=== PATIENT | female | born 1965 | race Caucasian/White ===

== ENCOUNTER 2019-04-26 13:46 | Inpatient (IN) ==
[2019-04-26] MEDS ORDERED: NS 1,000 ML IV ONE (14:15)
[2019-04-26] MEDS ORDERED: MORPHINE IV ONE (14:15)
--- NOTE | 2019-04-26 14:30 | PROVIDER DOCUMENTATION ---
HPI-Abdominal Pain/GI Problem - General Chief Complaint: Abdominal Pain Stated Complaint: N/V/D Time Seen by Provider: 04/26/19 14:11 Source: patient Allergies/Adverse Reactions: Patient Allergies Allergy/AdvReac Type Severity Reaction Status Date / Time No Known Allergies Allergy Verified 04/26/19 14:37 Home Medications: Home Medication List Medication Instructions Recorded Confirmed Last Taken Type NK [No Home Medications] 04/26/19 04/26/19 Unknown History - History of Present Illness-ABD Nature of Presenting Problems: STATES SHE ONLY HAS HISTORY OF PANCREATITIS CAME IN TODAY WITH RIGHT/LEFT UPPER AND EPIGASTRIC PAIN THAT'S SHARP AND RADIATES TO THE BACK. STATES IT STARTED TODAY. DENIES DRINKING ALCOHOL RECENTLY. ENDORSE NAUSEA AND VOMITING. DENIES FEVER, CHILL, NIGHT SWEATS, DIZZINESS, LIGTHHEADEDNESS, BLURRY VISION, SORE THROAT, CHEST PAIN, DYSPNEA, CONSTIPATION, MYALGIA, ARTHRALGIA, NEW RASH/LESION, AND HEAT OR COLD INTOLERANCE. Abdominal Pain Onset Location: reports: RUQ, LUQ, epigastric Pain Radiation: reports: back Quality of Pain: reports: sharp, stabbing Onset/Duration: reports: 4-6 hours ago Timing: reports: still present Review of Systems - Adult - REVIEW OF SYSTEMS - ADULT ROS:: unobtainable per condition Constitutional: reports: no symptoms reported Eyes: reports: no symptoms reported Ears, Nose, Mouth & Throat: reports: no symptoms reported Cardiovascular: reports: no symptoms reported Respiratory: reports: no symptoms reported Gastrointestinal: reports: abdominal pain, diarrhea, nausea, poor appetite, vomiting Genitourinary: reports: no symptoms reported Musculoskeletal: reports: no symptoms reported Integumentary: reports: no symptoms reported Neurological: reports: no symptoms reported Psychiatric: reports: no symptoms reported Endocrine: reports: no symptoms reported Hematologic/Lymphatic: reports: no symptoms reported Allergic/Immunologic: reports: no symptoms reported Past History - Adult - PAST MEDICAL HISTORY-ADULT Review of Records: reports: Old Records Reviewed Physical Exam-General - PHYSICAL EXAM-ADULT Initial Vital Signs Reviewed: Yes - CONSTITUTIONAL General Appearance: mild distress - EYES Eyes: PERRL/EOMI - HEAD, EARS, NOSE, MOUTH & THROAT HENMT: normocephalic/atraumatic, moist mucous membranes - NECK Neck: non-tender, full range of motion, supple - RESPIRATORY Respiratory: chest non-tender, lungs clear, normal breath sounds, no pleuratic chest pain, no respiratory distress, no accessory muscle use - CARDIOVASCULAR Cardiovascular: normal peripheral pulses, regular rate, rhythm, no edema, no gallop, no JVD, no murmur - GASTROINTESTINAL (ABDOMEN) Abdominal Exam: normal bowel sounds, soft, guarding, tenderness (PREDOMINANTLY EPIGASTRIC REGION). negative: abdominal bruit, distended, hernia, mass - MUSCULOSKELETAL Back Exam: normal inspection, no CVA tenderness, no vertebral tenderness Extremity: normal range of motion, non-tender, normal gait, normal inspection - SKIN Integumentary: normal color, normal turgor, warm/dry - NEUROLOGIC Neurologic: grossly normal - PSYCHIATRIC Psych/Mental Status: normal mood/affect, normal thought content, normal thought process, oriented x 3 Progress - PLAN OF CARE/RESULTS Progress/Plan/Lab Results: Orders Category Date Time Status NPO Diet 04/26/19 14:[address] ABD/PELVIS W/IV CONT ONLY [CT] Stat Exams 04/26/19 14:15 Ordered AMYLASE [CHEM] Stat Lab 04/26/19 14:15 Uncollected CBC WITH DIFF [HEME] Stat Lab 04/26/19 14:15 Uncollected COMPREHENSIVE METABOLIC PANEL [CHEM] Stat Lab 04/26/19 14:15 Uncollected LIPASE [CHEM] Stat Lab 04/26/19 14:15 Uncollected MAGNESIUM [CHEM] Stat Lab 04/26/19 14:15 Uncollected URINALYSIS [URINALYSIS] Stat Lab 04/26/19 14:15 Uncollected URINE DRUG SCREEN Stat Lab 04/26/19 14:15 Uncollected 0.9% Sodium Chloride Inj [Ns] 1,000 ml Med 04/26/19 14:15 Active IV 999 mls/hr Morphine Med 04/26/19 14:15 Discontinued 4 mg IV NOW ONE Result Diagrams: 04/26/19 14:45 04/26/19 14:45 - REASSESSMENT Reassessment #1 Time Reassessed: 17:50 Status: other (SPOKE TO ALLYN; WILL ADMIT FOR SUDDENT ONET OF ABD PAIN AND N AND V AND CT WITH POSSIBLE ENTERITIS AND ILELUS. [facility] - CT/MRI 1 CT Study: Abdomen ([facility] - [address], [address], [place] [address] [facility] - [address] , [place] [address] Department of Imaging Patient: YNES GILLESPIE Date: 04/26/19#: [id number] : 1965ADM Status: REG [facility]#: [id number] Age/Sex: 53/FRoom/Bed: Loc: ED Ordering Physician: Bianka Reed MD Family Physician: None,PCP Reason for Procedure: EPI PAIN OUT OF PORPROTION ___ Signed EXAM: CT ABDOMEN/PELVIS W/O CONTRAST INDICATION: EPI PAIN OUT OF PROPORTION TECHNIQUE: This exam was performed using automated exposure control, adjustment of mA or kV according to patient size, and/or use of iterative reconstruction technique. COMPARISON: None. FINDINGS: There is mild subsegmental atelectasis at the lung bases. There is a 7 mm noncalcified nodule at the periphery of the right lower lobe on image six of series 4. It is indeterminate and may represent a noncalcified granuloma. Consider follow-up based on Fleischner Society criteria. There has been a prior cholecystectomy. There is mild compensatory dilatation of the common bile duct related to postcholecystectomy status. The liver, spleen, pancreas, adrenal glands, kidneys, and urinary bladder are grossly unremarkable as imaged with unenhanced CT. There has been a prior hysterectomy. The appendix is normal. There is abundant stool in the colon suggesting possible constipation. The stool burden is moderate. There is a tiny hiatal hernia. There are a few mildly prominent fluid-filled loops of proximal small bowel that are nonspecific. This probably represents a mild ileus, perhaps due to enteritis. No inflammatory stranding or definite bowel wall thickening is identified, however. There is a very small left inguinal hernia containing only fat. There is a small fat-containing umbilical hernia. No focal inflammatory changes, free abdominal gas, or free fluid is identified. There is mild facet arthropathy at the lower lumbar spine. There is no evidence of acute osseous abnormality. IMPRESSION: 1.Fluid-filled loops of jejunum and duodenum with mild distention. It is nonspecific. Consider ileus related to mild enteritis. 2.Possible constipation. 3.7 mm noncalcified nodule in the right right lung lower lobe. 4.Other incidental/nonacute findings detailed above. Electronically signed by Catracho Anderson 04/26/2019 4:45 PM 04/26/19 [id number] Interpreting Physician: Catracho Anderson MD Dictated Date/Time: 04/26/19 8748 cc: Bianka Reed MD; None,PCP) Departure - Departure Date of Disposition Decision: 04/26/19 Time of Disposition Decision: 17:51 DIAGNOSIS: Ileus, Enteritis Disposition: ADMITTED INPATIENT 09 Certified Medical Emergency: Emergent Condition: Poor Referrals and Follow-Ups: None,PCP [Primary Care Provider] - - Critical Care Note This patient required my direct & personal management of CC.: No Attestation - Physician/ SIMON Attestation Patient care was provided by Advanced Practice Provider:: No The physician spent face to face time with patient:: Yes Advanced Practice Provider documentation review:: Supervising physician onsite and consulted in the evaluation and care of this patient. The physician did have a face to face encounter with the patient.
[2019-04-26] MEDS ORDERED: SODIUM CHLORIDE 0.9% INJ ONE (14:56)
[2019-04-26] MEDS ORDERED: PHENERGAN IV ONE (14:56)
[2019-04-26 15:14] LABS: BASO# 0.02 X1000 (0.0-0.2); BASO% 0.1 % (0.0-0.8); EOS# 0.15 X1000 (0.0-0.7); EOS% 0.9 % (0.0-10.0); HEMATOCRIT 44.2 % (37.0-47.0); HEMOGLOBIN 14.7 g/dL (12.0-16.0); IMM GRAN# 0.05 X1000 (0.0-0.04); IMM GRAN% 0.3 % (0.0-0.5); LYMPH# 1.02 X1000 (1.2-3.4); LYMPH% 6.2 % (20.5-51.1); MCH 28.4 PG (27-31); MCHC 33.3 g/dL (33-37); MCV 85.3 FL (81-99); MONO# 0.76 X1000 (0.11-0.59); MONO% 4.6 % (1.7-9.3); MPV 10.2 FL (7.4-10.4); NEUT# 14.43 X1000 (1.4-6.5); NEUT% 87.9 % (42.2-75.2); PLT 270 X1000 (130-400); RBC 5.18 XMIL (4.2-5.4); RDW 13.4 % (11.5-14.5); WBC 16.43 X1000 (4.8-10.8)
[2019-04-26 16:06] LABS: AGAP 19; ALB/GLOB RATIO 1.5; ALBUMIN 4.5 g/dL (3.5-5.0); ALKALINE PHOSPHATASE 118 U/L (32-104); AMYLASE 78 U/L (20-200); BUN 18 mg/dL (8-22); CALCIUM 8.4 mg/dL (8.8-10.2); CHLORIDE 99 mmol/L (98-107); COSMO 278; CREATININE 0.6 mg/dL (0.5-0.9); ESTIMATED GFR > 60; GLUCOSE 112 mg/dL (70-104); GOT 27 U/L (10-30); GPT 34 U/L (10-36); LIPASE 31 U/L (13-60); MAGNESIUM 1.7 mg/dL (1.5-2.7); POTASSIUM 3.6 mmol/L (3.5-5.1); SODIUM 138 mmol/L (136-145); TCO2 20 mmol/L (25-35); TOTAL BILIRUBIN 0.71 mg/dL (0.20-1.00); TOTAL PROTEIN 7.6 g/dL (6.3-8.3)
--- NOTE | 2019-04-26 16:48 | Diag Imaging Result Doc PS360 ---
EXAM: CT ABDOMEN/PELVIS W/O CONTRAST INDICATION: EPI PAIN OUT OF PROPORTION TECHNIQUE: This exam was performed using automated exposure control, adjustment of mA or kV according to patient size, and/or use of iterative reconstruction technique. COMPARISON: None. FINDINGS: There is mild subsegmental atelectasis at the lung bases. There is a 7 mm noncalcified nodule at the periphery of the right lower lobe on image six of series 4. It is indeterminate and may represent a noncalcified granuloma. Consider follow-up based on Fleischner Society criteria. There has been a prior cholecystectomy. There is mild compensatory dilatation of the common bile duct related to postcholecystectomy status. The liver, spleen, pancreas, adrenal glands, kidneys, and urinary bladder are grossly unremarkable as imaged with unenhanced CT. There has been a prior hysterectomy. The appendix is normal. There is abundant stool in the colon suggesting possible constipation. The stool burden is moderate. There is a tiny hiatal hernia. There are a few mildly prominent fluid-filled loops of proximal small bowel that are nonspecific. This probably represents a mild ileus, perhaps due to enteritis. No inflammatory stranding or definite bowel wall thickening is identified, however. There is a very small left inguinal hernia containing only fat. There is a small fat-containing umbilical hernia. No focal inflammatory changes, free abdominal gas, or free fluid is identified. There is mild facet arthropathy at the lower lumbar spine. There is no evidence of acute osseous abnormality. IMPRESSION: 1.Fluid-filled loops of jejunum and duodenum with mild distention. It is nonspecific. Consider ileus related to mild enteritis. 2.Possible constipation. 3.7 mm noncalcified nodule in the right right lung lower lobe. 4.Other incidental/nonacute findings detailed above. Electronically signed by Catracho Anderson 04/26/2019 4:45 PM
[2019-04-26 16:58] LABS: URINE SOURCE CATH
[2019-04-26 17:04] LABS: BILIRUBIN URINE NEGATIVE (NEGATIVE); BLOOD URINE SMALL (NEGATIVE); COLOR YELLOW; GLUCOSE URINE NEGATIVE (NEGATIVE); KETONE URINE NEGATIVE (NEGATIVE); LEUKOCYTES URINE NEGATIVE (NEGATIVE); NITRITE URINE NEGATIVE (NEGATIVE); PH URINE 5.5; PROTEIN URINE TRACE mg/dL (NEGATIVE); SP GRAVITY URINE 1.023; TURBIDITY URINE CLEAR (CLEAR); UROBILINOGEN URINE NORMAL (NORMAL)
[2019-04-26 17:07] LABS: UR EPITHELIAL CELLS <10 /HPF (<10); URINE BACTERIA NEGATIVE /HPF; URINE RBC <10 /HPF (<10); URINE WBC <10 /HPF (<10)
[2019-04-26 17:14] LABS: UR AMPHETAMINES QUAL NONE DETECTED (NONE DETECT); UR BARBITUATES QUAL NONE DETECTED (NONE DETECT); UR BENZODIAZEPIN QUAL NONE DETECTED (NONE DETECT); UR CANNABINOIDS QUAL NONE DETECTED (NONE DETECT); UR COCAINE QUAL NONE DETECTED (NONE DETECT); UR METHADONE QUAL NONE DETECTED (NONE DETECT); UR OPIATES QUAL PRESUMPTIVE POSITIVE (NONE DETECT); UR OXYCODONE QUAL NONE DETECTED (NONE DETECT); UR PCP QUAL NONE DETECTED (NONE DETECT)
[2019-04-26] MEDS ORDERED: ZOFRAN IV PRN (17:31)
[2019-04-26] MEDS ORDERED: NS 1,000 ML IV SCH (17:45)
[2019-04-26] MEDS ORDERED: MORPHINE IV PRN (18:04)
[2019-04-26] MEDS ORDERED: REGLAN IV SCH (18:15)
[2019-04-26] MEDS ORDERED: RELISTOR SUBQ ONE (18:48)
[2019-04-26] MEDS: BENTYL IM SCH (19:36)
[2019-04-26] MEDS: DULCOLAX PR SCH (19:37)
--- NOTE | 2019-04-26 19:37 | HISTORY AND PHYSICAL ---
CHIEF COMPLAINT: Abdominal pain, nausea. HPI: This is a 53-year-old female with a prior history of pancreatitis who presents to the emergency room complaining of nausea, vomiting, and upper abdominal pain. She states this started this morning. She states it feels like her prior pancreatitis symptoms. She did eat tacos last night prior to going to bed. She denied any black or bloody vomitus or stools, any chest pain, palpitations, any fevers or chills. PAST MEDICAL HISTORY: 1. Pancreatitis. 2. Gastroesophageal reflux disease. PAST SURGICAL HISTORY: Hysterectomy, bilateral tubal ligation. SOCIAL HISTORY: She has a remote history of ethanol abuse, although she as well as her family member state it has been greater than 5 years since her last drink. She denies any tobacco or illicit drug use. FAMILY HISTORY: She denies any heart disease [*] hypertension and with her both parents. She denies any diabetes in her family. ALLERGIES: No known drug allergies. HOME MEDICATIONS: A list will be obtained by the nursing staff and once verified will review and restart as appropriate. REVIEW OF SYSTEMS: Discussed with patient with pertinent positives stated in the HPI. She denies any syncope or dizziness, any chest pain or palpitations, any diarrhea, constipation, black or bloody vomitus or stools, any hematuria, dysuria, frequency, urgency. No shortness of breath, cough, fever, chills. PHYSICAL EXAM: This is a 53-year-old female who is lying in the bed. She is drowsy after having morphine. VITAL SIGNS: Blood pressure is 134/76 with a heart rate of 94, respirations are 18, temperature is 97.9 degrees with room air saturations 95%. HEENT: Pupils are equal, round, react to light. EOMs are intact. Sclerae anicteric. Head is normocephalic, atraumatic. Mucous membranes are moist. NECK: Supple. Trachea midline. CARDIOVASCULAR: Regular rate and rhythm. S1, S2 appreciated. She has no lower extremity edema. Calves are nontender bilateral with peripheral pulses palpable x4 extremities. PULMONARY: Breath sounds are clear. No increased work of breathing noted. Chest rise fall symmetric respiration. Chest wall is nontender to palpation. GASTROINTESTINAL: Abdomen soft. She is tender to palpation at the bilateral upper quadrants and epigastric area. She is distended with bowel sounds in all 4 quadrants. : No CVA or suprapubic tenderness. NEUROLOGIC: She is sleepy but she is oriented x3. SKIN: Warm and dry. LABS: WBC is 16.4 with hemoglobin 14.7, hematocrit 44.2, platelets of 270,000. Sodium 138, potassium 3.6, BUN 18, creatinine 0.6 with a glucose of 112, alkaline phosphatase is 118. Urinalysis is catheterization urine is positive for blood, otherwise essentially negative. Urine drug screen is presumptive positive for opiates. CT of the abdomen and pelvis reveals fluid-filled loops of jejunum and duodenum with mild distention that is nonspecific. Consider ileus related to mild enteritis, possible constipation. A 7 mm noncalcified nodule in the right lower lung. ASSESSMENT AND PLAN: 1. Epigastric upper quadrant pain. 2. Nausea and vomiting. 3. Leukocytosis. 4. History of chronic pancreatitis. 5. Gastroesophageal reflux disease. PLAN: The patient will be admitted to the medical floor. She will be n.p.o. at present. Will continue with IV hydration with IV antiemetics and pain medicine. Repeat a CBC, CMP, amylase and lipase in the morning. Start Dulcolax suppositories q.6 hours along with Reglan q.6 hours giving Prilosec as a PPI. For DVT prophylaxis will use SCDs at present. Further treatments pending hospital course. Dictated by ALYX Rodas for Wilbur Vo MD cc: ALYX Rodas MD
[2019-04-26] MEDS ORDERED: TYLENOL PO PRN (19:51)
--- NOTE | 2019-04-26 20:24 | HISTORY AND PHYSICAL ---
SUBJECTIVE: I have seen and examined Ms. Bertrand today. Ms. Bertrand presented because of acute onset of upper epigastric mid abdomen pain associated with some nauseation and vomiting. She thought she had an episode of pancreatitis since she had this before. She got a gallbladder removal in 2012 because of gallbladder induced acute pancreatitis. Since then, she has not had any more bouts. Upon presenting to the emergency department, she was evaluated. Her vitals were within normal range, and she was saturating well. Her current physical exam is remarkable for mild epigastric discomfort with mild tenderness. No rebound. No guarding. Bowel sounds are present, but slightly hypoactive. Otherwise, the mucosa is slightly dry. Laboratory Data has also been reviewed. White cell count is 16.43. Rest of the cell count is within normal range. Chemistry is also reviewed. Mild gap acidosis. The urine toxicology is positive for opioids despite Ms. Bertrand denies taking any opioid containing substance. CURRENT IMAGING DATA: A CAT scan of the abdomen shows fluid-filled loops of jejunum and duodenum with mild distention. It is nonspecific. Consider ileus related to mild enteritis, and possible constipation. ASSESSMENT: 1. Abdominal pain associated with nausea and vomiting. A CAT scan suggestive of constipation and enteritis. For now, we are going to keep Ms. Bertrand NPO, adequately hydrate her. Control her pain. Avoid any narcotics for now. 2. Constipation. Ms. Bertrand denies using any narcotic, however, her urine sample is positive for opioids. It is very possible that this is opioid induced constipation. We are going to give her a dose of methyl naltrexone subcutaneous, and try avoid any narcotic overnight. Use Bentyl and acetaminophen for pain control. 3. Clinical volume depletion. Will continue with IV fluids overnight. 4. Leukocytosis, presumably reactive. 5. Please refer to the details of the H P which has been dictated by the DRIER TENDER in the chart. cc: Wilbur Vo MD
[2019-04-26] MEDS: NS 1,000 ML IV SCH (20:54)
[2019-04-26] MEDS: OFIRMEV 1000 MG/ISOTONIC SOLN 1,000 MG/100 ML BOTTLE IV SCH (20:54)
[2019-04-26] MEDS: LACTULOSE PO SCH (20:54)
[2019-04-27] MEDS: BENTYL IM SCH ×2 (01:04→06:43)
[2019-04-27] MEDS: DULCOLAX PR SCH ×3 (01:04→11:05)
[2019-04-27] MEDS: OFIRMEV 1000 MG/ISOTONIC SOLN 1,000 MG/100 ML BOTTLE IV SCH (01:24)
[2019-04-27] MEDS ORDERED: FLU VACCINE IM ONE (01:49)
[2019-04-27] MEDS: NS 1,000 ML IV SCH ×2 (05:28→10:55)
[2019-04-27 06:30] LABS: AGAP 14; ALB/GLOB RATIO 1.1; ALBUMIN 3.1 g/dL (3.5-5.0); ALKALINE PHOSPHATASE 105 U/L (32-104); BUN 20 mg/dL (8-22); CALCIUM 7.4 mg/dL (8.8-10.2); CHLORIDE 101 mmol/L (98-107); COSMO 272; CREATININE 0.6 mg/dL (0.5-0.9); ESTIMATED GFR > 60; GLUCOSE 122 mg/dL (70-104); GOT 218 U/L (10-30); GPT 146 U/L (10-36); POTASSIUM 3.4 mmol/L (3.5-5.1); SODIUM 134 mmol/L (136-145); TCO2 19 mmol/L (25-35); TOTAL BILIRUBIN 1.32 mg/dL (0.20-1.00); TOTAL PROTEIN 5.8 g/dL (6.3-8.3)
[2019-04-27 06:33] LABS: AMYLASE 31 U/L (20-200); LIPASE 14 U/L (13-60)
[2019-04-27 06:45] LABS: BASO# 0.01 X1000 (0.0-0.2); BASO% 0.1 % (0.0-0.8); EOS# 0.03 X1000 (0.0-0.7); EOS% 0.4 % (0.0-10.0); HEMATOCRIT 35.2 % (37.0-47.0); HEMOGLOBIN 11.9 g/dL (12.0-16.0); IMM GRAN# 0.03 X1000 (0.0-0.04); IMM GRAN% 0.4 % (0.0-0.5); LYMPH# 0.53 X1000 (1.2-3.4); LYMPH% 6.4 % (20.5-51.1); MCH 28.8 PG (27-31); MCHC 33.8 g/dL (33-37); MCV 85.2 FL (81-99); MONO# 0.54 X1000 (0.11-0.59); MONO% 6.5 % (1.7-9.3); MPV 10.5 FL (7.4-10.4); NEUT# 7.15 X1000 (1.4-6.5); NEUT% 86.2 % (42.2-75.2); PLT 233 X1000 (130-400); RBC 4.13 XMIL (4.2-5.4); RDW 13.4 % (11.5-14.5); WBC 8.29 X1000 (4.8-10.8)
[2019-04-27 07:08] LABS: BANDS 10 % (0-1); LARGE PLATELETS 1+; LYMPHS 8 % (21-51); SEGS 80 % (42-75)
--- NOTE | 2019-04-27 07:31 | Diag Imaging Result Doc PS360 ---
EXAM: KUB ABDOMEN 04/27/2019 HISTORY: SBO TECHNIQUE: KUB COMMENT: There are surgical clips in the right upper quadrant. There is stool and gas in the colon without evidence of dilatation. The stomach and small bowel are not distended. There are numerous phleboliths in the pelvis. There is no evidence organomegaly or mass. IMPRESSION: No evidence of small bowel obstruction. Mild constipation. Electronically signed by Rakan Brizuela 04/27/2019 7:28 AM
[2019-04-27] MEDS: LACTULOSE PO SCH (08:20)
[2019-04-27] MEDS ORDERED: PRILOSEC PO SCH (09:00)
--- NOTE | 2019-04-27 10:47 | Diag Imaging Result Doc PS360 ---
EXAM: US GB < RUQ (LIMITED) 04/27/2019 HISTORY: elavated liver enzymes TECHNIQUE: Right upper quadrant ultrasound COMMENT: The visualized portions of the pancreas are within normal limits. The aorta and inferior vena cava are normal in appearance. The liver is slightly hyperechoic. There is no evidence of biliary dilatation and there is antegrade flow in the portal vein. The common bile duct measures less than 6 mm. The gallbladder has been resected. The right kidney is without evidence of hydronephrosis or mass. Compared to 11/06/2012 the liver is similar in appearance. IMPRESSION: Hepatic steatosis. Electronically signed by Rakan Brizuela 04/27/2019 10:44 AM
[2019-04-27 11:40] VITALS: BP 108/60
--- NOTE | 2019-04-28 01:42 | DISCHARGE SUMMARY ---
ADMISSION DATE: 04/26/2019 DISCHARGE DATE: 04/27/2019 DISPOSITION: Home. FOLLOWUP: Will be with the patient's PCP. CONSULTATION: During this admission, none. DIAGNOSTIC DATA: Imaging studies of significance: 1. A CAT scan of the abdomen did show constipation and fluid-filled loops of jejunum and duodenum with mild distention; consider ileus. 2. A KUB showed no evidence of small bowel. Some mild constipation. 3. Ultrasound of the abdomen did show hepatic steatosis. ADMISSION DIAGNOSES: 1. Epigastric pain. 2. Nausea and vomiting. 3. Leukocytosis. 4. Chronic pancreatitis. DISCHARGE DIAGNOSES: 1. Abdominal pain associated with nausea and vomiting on presentation, presumably due to constipation. 2. Constipation associated with ileus. 3. Clinical volume depletion. 4. Leukocytosis. 5. History of gallbladder-induced pancreatitis, status post cholecystectomy. 6. Transaminitis during the hospital course, presumably medication-induced on the background of hepatic steatosis. The patient has been advised to repeat liver function tests within 1 week and follow up with her primary care doctor. PRESENTING COMPLAINT: Abdominal pain. HISTORY OF PRESENTING COMPLAINT: Ms. Bertrand is a 53-year-old female who had gallstone- induced acute pancreatitis about 3 years ago. She underwent gallbladder removal. Since then she has not had any more issues. She came in this time because of extreme abdominal pain associated with nausea and vomiting. A CAT scan did show some enteritis/ileus and constipation. Ms Bertrand was admitted to the medical floor for management. HOSPITAL COURSE: Ms. Bertrand was initially kept n.p.o. Pain was treated with IV Tylenol and Bentyl. She was given onetime dose of naltrexone because her urine was positive for opioids, and we assumed that there was some element of opioid-induced constipation. Overnight she remarkably improved. This morning she denied any more abdominal pain. Obviously, she has had about 3 bowel movements. A KUB this morning showed mild constipation. We started the patient on GI soft diet. She has tolerated it, and she does not have any more pain. There was slight elevation in her LFTs during the hospital course, which we think is probably medication-related. We did an ultrasound which revealed that she also has hepatic steatosis. We have advised Ms. Bertrand to reduce some weight and also follow up with repeat LFTs within a week, and review with her primary care doctor. At the time of the discharge Ms. Bertrand is completely asymptomatic and she is tolerating her diet. VITAL SIGNS: Her current blood pressure 108/60, pulse of 95, respirations 20, temperature 98.1 degrees. CONDITION: Ms. Bertrand is in stable condition for discharge. All the discharge instructions have been discussed with her, and she voiced understanding. Time spent for discharge is 36 minutes. cc: Wilbur Vo MD MTDD
== END 2019-04-27 16:02 | disposition home or self-care (01) | DRG 390 ==
LOC: ED 13:46 → 4N 19:53
PROVIDERS: ATTEND Internal Medicine